=== PATIENT | male | born 1975 | race Caucasian/White ===

== ENCOUNTER 2021-07-10 18:12 | Emergency (ER) | payer OTHER ==
[2021-07-10] MEDS ORDERED: ERYTHROMYCIN O3.5 GM OD (19:50)
== END 2021-07-10 20:13 | disposition home or self-care (01) ==
LOC: ER1 18:12
DX: T15.01XA Foreign body in cornea, right eye, initial encounter (principal); X58.XXXA Exposure to other specified factors, initial encounter
CPT/HCPCS: 99283